=== PATIENT | male | born 1965 | race Caucasian/White ===

== ENCOUNTER 2018-04-13 18:37 | Emergency (ER) | payer OTHER ==
[~2018-04-13] VITALS: Ht 165.1 cm; Wt 88.5 kg
[~2018-04-13 18:37] MED LIST: ALLOPURINOL 30300 M1 PO; ALPRAZOLAM; ALPRAZOLAM 0.0.25 M1 PO; AMARYL4 MG PO; ATORVASTATIN CA20 MG PO; CELEXA40 MG PO; CLONAZEPAM0.125 MG PO; CO Q-10200 MG PO; DEPAKOTE500 MG PO; DOXYCYCLINE 10100 M1 PO; FLEXERIL PO; FLOMAX; GLUCOPHAGE1000 MG PO; HYDROCODONE-ACE15 ML PO; KLOR-CON 10 ER10 MEQ PO; LABETALOL HCL100 MG; LASIX 40 MG TAB40 M1 PO; LASIX PO; LORTAB PO; MOBIC15 MG PO; NOVOLIN N100 UNIT/1 SUBQ; PERCOCET 5-3251 EACH PO; PERCOCET 7.5-31 EACH PO; PREDNISONE 20 M20 M1 PO; PREVACID15 MG PO; REQUIP 0.25 M0.25 MG PO; SYMBICORT160 MCG/4. INH; ULTRAM 50MG TAB50 MG; ULTRAM 50MG TAB50 MG PO; VALIUM10 MG; VALIUM10 MG PO; VENTOLIN HFA 1818 GM INH; VITAMIN D 5050000 I1 PO; XANAX 0.25 MG0.25 MG PO; ZOFRAN 4 MG ORAL4 M1 DIS; ZOFRAN4 MG PO; ZPAK PO; ZYRTEC10 M2 PO
[2018-04-13] MEDS ORDERED: XANAX 0.5 MG0.5 MG PO (19:20)
[2018-04-13] MEDS ORDERED: METFORMIN HCL500 MG PO (19:26)
[2018-04-13] MEDS ORDERED: NEURONTIN 300M300 M2 PO (19:27)
[2018-04-13] MEDS ORDERED: POTASSIUM20 PO (19:28)
[2018-04-13 20:00] LABS: ABSOLUTE BASOPHILS 0.1 thou/uL (0.0-0.2); ABSOLUTE EOSINOPHILS 0.3 thou/uL (0.0-0.7); ABSOLUTE LYMPHOCYTES 2.7 thou/uL (0.8-5.3); ABSOLUTE MONOCYTES 0.5 thou/uL (0.0-1.2); ABSOLUTE NEUTROPHILS 5.6 thou/uL (1.6-8.1); BASOPHILS 0.8 %; EOSINOPHILS 3.6 %; HEMATOCRIT 41.2 % (42.0-52.0); HEMOGLOBIN 14.1 gm/dL (14.0-18.0); LYMPHOCYTES 29.3 %; MCH 28.5 pg (26.0-34.0); MCHC 34.3 g/dL (28.0-37.0); MCV 83.3 fL (80.0-100.0); MONOCYTES 5.8 %; MPV 10.3 fl. (7.2-11.1); NUCLEATED RBCS 0 /100WBC; PLATELET COUNT* 180 thou/uL (150-400); POLYS 60.5 %; RBC 4.95 mil/uL (4.50-6.00); RDW-CV 12.9 % (10.5-14.5); WBC 9.3 thou/uL (4.0-11.0)
[2018-04-13 20:04] LABS: ANION GAP 11 mmol/L (7-16); BUN 11 mg/dL (7-18); CALCIUM 8.7 mg/dL (8.5-10.1); CHLORIDE 104 mmol/L (98-107); CO2 25 mmol/L (21-32); CREATININE 0.7 mg/dL (0.6-1.3); GLUCOSE 201 mg/dL (70-99); POTASSIUM 3.7 mmol/L (3.5-5.1); SODIUM 140 mmol/L (136-145)
[2018-04-13 20:11] LABS: ALBUMIN 3.4 g/dL (3.4-5.0); ALKALINE PHOSPHATASE 132 U/L (46-116); SGOT 17 U/L (15-37); SGPT 40 U/L (30-65); TOTAL BILIRUBIN 0.7 mg/dL (<0.1-1.0); TROPONIN-I LEVEL <0.06 ng/mL (<0.06)
[2018-04-13] MEDS ORDERED: LEVAQUIN 500 M500 M3 PO (20:54)
[2018-04-13 21:11] LABS: INFLUENZA A ANTIGEN None Detected (None Detect); INFLUENZA B ANTIGEN None Detected (None Detect)
[2018-04-13 21:45] VITALS: BP 134/92
== END 2018-04-13 21:45 | disposition home or self-care (01) ==
LOC: M.ERS 18:37
PROVIDERS: Nurse Practitioner Family
DX: J01.90 Acute sinusitis, unspecified (principal); E11.65 Type 2 diabetes mellitus with hyperglycemia; K21.9 Gastro-esophageal reflux disease without esophagitis; G47.30 Sleep apnea, unspecified; F32.9 Major depressive disorder, single episode, unspecified; G25.81 Restless legs syndrome; F17.210 Nicotine dependence, cigarettes, uncomplicated; Z88.1 Allergy status to other antibiotic agents; Z87.442 Personal history of urinary calculi

== ENCOUNTER 2019-03-15 00:43 | Emergency (ER) | payer OTHER ==
[~2019-03-15] VITALS: Ht 165.1 cm; Wt 102.1 kg
[~2019-03-15 00:43] MED LIST changes: +INVOKANA300 MG PO; +JANUVIA100 MG PO; +LEVAQUIN 500 M500 M3 PO; +LIPITOR 20 MG T20 M1 PO; +METFORMIN HCL500 MG PO; +NEURONTIN 300M300 M2 PO; +POTASSIUM20 PO; +PROVENTIL HFA6.7 G1 INH; +XANAX 0.5 MG0.5 MG PO
[2019-03-15] MEDS ORDERED: KEFLEX500 M1 PO (00:59)
[2019-03-15] MEDS ORDERED: TRAMADOL 50 MG50 MG PO (00:59)
[2019-03-15 01:00] LABS: URINE BILIRUBIN NEGATIVE (Negative); URINE BLOOD 2+ (Negative); URINE CLARITY CLEAR; URINE COLOR YELLOW; URINE GLUCOSE-RANDOM 2+ (Negative); URINE KETONES TRACE (Negative); URINE LEUKOCYTES-REFLEX NEGATIVE (Negative); URINE NITRITE-REFLEX NEGATIVE (Negative); URINE PROTEIN NEGATIVE (Negative); URINE SPECIFIC GRAVITY >= 1.030 (1.005-1.030); URINE UROBILINOGEN 0.2 E.U./dl (0.2-1.0)
[2019-03-15] MEDS ORDERED: ASA81BEC PO (01:05)
[2019-03-15] MEDS ORDERED: D3-200050 MCG PO (01:05)
[2019-03-15] MEDS ORDERED: B12 PO (01:05)
[2019-03-15] MEDS ORDERED: GLIPIZIDE 10 MG10 MG PO (01:06)
[2019-03-15] MEDS ORDERED: VALACYCLOVIR1000 MG PO (01:06)
[2019-03-15] MEDS ORDERED: DICYCLOMINE HCL20 MG PO (01:07)
[2019-03-15 01:08] LABS: SQUAMOUS 0-3 Few /LPF (0-3)
[2019-03-15 01:09] LABS: CASTS None Seen /LPF (None Seen); CRYSTALS None Seen /LPF (None Seen); MUCUS 0-3 Light strn/LPF (None Seen); URINE WBC-REFLEX 0-5 Rare /HPF (0-5)
[2019-03-15 01:10] LABS: BACTERIA-REFLEX None Seen /HPF (None Seen)
[2019-03-15] MEDS ORDERED: CIPROFLOXACIN500 M1 PO (02:54)
[2019-03-15] MEDS ORDERED: PYRIDIUM200 MG PO (02:54)
[2019-03-15 03:14] VITALS: BP 106/79
== END 2019-03-15 03:17 | disposition home or self-care (01) ==
LOC: M.ERS 00:43
PROVIDERS: Emergency Medicine
DX: R30.0 Dysuria (principal); R31.9 Hematuria, unspecified; J45.909 Unspecified asthma, uncomplicated; E11.9 Type 2 diabetes mellitus without complications; K21.9 Gastro-esophageal reflux disease without esophagitis; G47.30 Sleep apnea, unspecified; F32.9 Major depressive disorder, single episode, unspecified; G25.81 Restless legs syndrome; Z98.84 Bariatric surgery status; Z88.1 Allergy status to other antibiotic agents; Z88.0 Allergy status to penicillin

== ENCOUNTER → 2019-08-25 | Outpatient (CLI) | payer OTHER ==
[~2019-08-25] MED LIST changes: +ASA81BEC PO; +B12 PO; +CIPROFLOXACIN500 M1 PO; +D3-200050 MCG PO; +DICYCLOMINE HCL20 MG PO; +GLIPIZIDE 10 MG10 MG PO; +KEFLEX500 M1 PO; +PYRIDIUM200 MG PO; +TRAMADOL 50 MG50 MG PO; +VALACYCLOVIR1000 MG PO
== END ==
LOC: M.RAD 11:41
DX: M79.672 Pain in left foot (principal)

== ENCOUNTER 2020-02-13 07:46 | Inpatient (IN) | payer OTHER ==
[~2020-02-13] VITALS: Ht 162.6 cm; Wt 104.3 kg
[2020-02-13 08:00] VITALS: BP 127/79
[2020-02-13] MEDS ORDERED: LIPITOR 20 MG T20 M1 PO (08:03)
[2020-02-13] MEDS ORDERED: TESSALON PERLE100 MG PO (08:03)
[2020-02-13] MEDS ORDERED: PROAIR HFA8.5 GM INH (08:03)
[2020-02-13 08:38] LABS: ABSOLUTE LYMPHOCYTES 1.1 thou/uL (0.8-5.3); ABSOLUTE MONOCYTES 0.4 thou/uL (0.0-1.2); ABSOLUTE NEUTROPHILS 3.2 thou/uL (1.6-8.1); BASOPHILS 0.2 %; HEMATOCRIT 41.6 % (42.0-52.0); LYMPHOCYTES 22.7 %; MCH 27.8 pg (26.0-34.0); MCHC 33.8 g/dL (28.0-37.0); MCV 82.1 fL (80.0-100.0); MONOCYTES 7.7 %; MPV 9.8 fl. (7.2-11.1); NUCLEATED RBCS 0 /100WBC; POLYS 69.4 %; RBC 5.06 mil/uL (4.50-6.00); RDW-CV 13.2 % (10.5-14.5); WBC 4.6 thou/uL (4.0-11.0)
[2020-02-13 08:40] LABS: CALCIUM 8.3 mg/dL (8.5-10.1); CREATININE 0.8 mg/dL (0.6-1.3); POTASSIUM 3.5 mmol/L (3.5-5.1)
[2020-02-13 08:44] LABS: APTT 26.9 Seconds (25.0-31.3); PROTIME 10.9 Seconds (9.20-11.50)
[2020-02-13 08:46] LABS: BE -1.7 mmol/L (-2 to +3); PCO2 31.3 mmHg (35.0-45.0); PO2 88.8 mmHg (75.0-100.0); pH 7.449 (7.340-7.450)
[2020-02-13 08:50] LABS: ALBUMIN 2.9 g/dL (3.4-5.0); TOTAL BILIRUBIN 0.5 mg/dL (<0.1-1.0); TOTAL PROTEIN 7.4 g/dL (6.4-8.2)
[2020-02-13 09:23] LABS: PLATELET COUNT* 85 thou/uL (150-400)
--- NOTE | 2020-02-13 11:08 | EKG ---
[place] [address] ELECTROCARDIOGRAM REPORT Name: KALEN MCNEAL Room: [facility]#: [id number] Admission: 02/13/20 Attend Phys: Discharge: Date of : 65 Date of Service: 02/13/20814 Report #: [id number] THIS REPORT FOR: //name// [facility] ED Test Date: 2020-02-13 Test Time: 08:15:55 Pat Name: KALEN MCNEAL Department: Room: Gender: Field Support Rep: S : 1965 Requested By: Vishal Jimenez Order Number: [id number] MD: Gavin Oscar Measurements Intervals [place] Rate: 98 P: 60 SC: 158 QRS: -42 QRSD: 84 T: 24 QT: 343 QTc: 438 Interpretive Statements Sinus rhythm Probable left atrial enlargement Left axis deviation Low voltage, precordial leads Baseline wander in lead(s) II Compared to ECG 12/09/2015 05:49:32 Low QRS voltage now present Electronically Signed On 02-13-2020 11:07:48 ESCALATOR ATTENDANT by Gavin Oscar [email or web address] <ELECTRONICALLY SIGNED> By: Gavin Oscar MD, FAC 02/13/20 1107 4 4 Gavin Oscar MD, [facility] /EPI
[2020-02-13 15:10] VITALS: BP 111/79
[2020-02-13 20:10] VITALS: BP 114/70
[2020-02-14 00:10] VITALS: BP 112/68
[2020-02-14 04:10] VITALS: BP 107/63
[2020-02-14 08:00] VITALS: BP 125/76
[2020-02-14 09:42] LABS: HEMATOCRIT 41.1 % (42.0-52.0); HEMOGLOBIN 13.7 gm/dL (14.0-18.0); MCHC 33.4 g/dL (28.0-37.0); MCV 83.8 fL (80.0-100.0); MPV 10.4 fl. (7.2-11.1); RBC 4.9 mil/uL (4.50-6.00); WBC 4.5 thou/uL (4.0-11.0)
[2020-02-14 10:01] LABS: ALBUMIN 2.5 g/dL (3.4-5.0); CALCIUM 8.1 mg/dL (8.5-10.1); CREATININE 0.8 mg/dL (0.6-1.3); MAGNESIUM 1.9 mg/dL (1.8-2.4); POTASSIUM 3.8 mmol/L (3.5-5.1); TOTAL BILIRUBIN 0.4 mg/dL (<0.1-1.0); TOTAL PROTEIN 6.7 g/dL (6.4-8.2)
[2020-02-14 13:00] VITALS: BP 115/63
[2020-02-14 16:00] VITALS: BP 114/72
[2020-02-14 20:00] VITALS: BP 112/75
[2020-02-15] VITALS (7 sets, daily range): BP systolic 97–113; BP diastolic 56–78
[2020-02-15 06:05] LABS: HIV-1/HIV-2 ANTIBODY Non Reactive (Non Reactive)
[2020-02-16 06:42] LABS: HEMATOCRIT 43.7 % (42.0-52.0); MCH 28.8 pg (26.0-34.0); MCHC 32.1 g/dL (28.0-37.0); MPV 10.3 fl. (7.2-11.1); RBC 4.87 mil/uL (4.50-6.00); RDW-CV 13.4 % (10.5-14.5); WBC 8.9 thou/uL (4.0-11.0)
[2020-02-16 06:45] LABS: MCV 89.8 fL (80.0-100.0)
[2020-02-16 07:29] LABS: ALBUMIN 2.7 g/dL (3.4-5.0); CREATININE 0.8 mg/dL (0.6-1.3); MAGNESIUM 2.5 mg/dL (1.8-2.4); POTASSIUM 3.6 mmol/L (3.5-5.1); TOTAL BILIRUBIN 0.4 mg/dL (<0.1-1.0); TOTAL PROTEIN 6.6 g/dL (6.4-8.2)
[2020-02-16 08:25] VITALS: BP 112/68
[2020-02-16] MEDS ORDERED: CEFDINIR300 MG PO (09:59)
[2020-02-16] MEDS ORDERED: PREDNISONE 10 M10 MG PO (09:59)
[2020-02-16] MEDS ORDERED: AZITHROMYCIN 2250 MG PO (09:59)
[2020-02-16] MEDS ORDERED: MUCINEX600 MG PO (09:59)
[2020-02-16 10:24] VITALS: BP 112/68
[2020-02-16 11:40] VITALS: BP 140/79
[2020-02-16 18:06] LABS: HEPATITIS B SURFACE AG Negative (Negative)
== END 2020-02-16 13:10 | disposition home or self-care (01) | DRG 177 ==
LOC: M.ERS 07:46 → M.TBA-ER 11:12 → M.ORTHSURG 02-15 19:00
PROVIDERS: Family Medicine; ADMIT Internal Medicine; ATTEND Internal Medicine
PROC: XW033E5 Introduction of Remdesivir Anti-infective into Peripheral Vein, Percutaneous Approach, New Technology Group 5 (ICD-10-PCS; principal; 2020-02-14)
DX: U07.1 COVID-19 (principal); J96.01 Acute respiratory failure with hypoxia; J12.89 Other viral pneumonia; R65.10 Systemic inflammatory response syndrome (SIRS) of non-infectious origin without acute organ dysfunction; E44.0 Moderate protein-calorie malnutrition; Z68.39 Body mass index [BMI] 39.0-39.9, adult; G47.33 Obstructive sleep apnea (adult) (pediatric); F32.9 Major depressive disorder, single episode, unspecified; E11.9 Type 2 diabetes mellitus without complications; J45.909 Unspecified asthma, uncomplicated; E66.9 Obesity, unspecified; F41.1 Generalized anxiety disorder; G25.81 Restless legs syndrome; K21.9 Gastro-esophageal reflux disease without esophagitis; Z99.81 Dependence on supplemental oxygen; Z79.84 Long term (current) use of oral hypoglycemic drugs; Z79.82 Long term (current) use of aspirin; Z79.899 Other long term (current) drug therapy; Z88.0 Allergy status to penicillin; Z88.1 Allergy status to other antibiotic agents

== ENCOUNTER → 2020-03-18 | Outpatient (CLI) | payer OTHER ==
[~2020-03-18] MED LIST changes: +AZITHROMYCIN 2250 MG PO; +CEFDINIR300 MG PO; +MUCINEX600 MG PO; +PREDNISONE 10 M10 MG PO; +PROAIR HFA8.5 GM INH; +TESSALON PERLE100 MG PO
== END ==
LOC: M.ULTRA 14:45
PROVIDERS: ATTEND Registered Nurse Diabetes Educator
DX: N50.3 Cyst of epididymis (principal); N50.811 Right testicular pain; N43.3 Hydrocele, unspecified